=== PATIENT | male | born 2000 | race Caucasian/White ===

== ENCOUNTER 2022-10-08 19:30 | Emergency (ER) | payer SELFPAY ==
--- NOTE | ~2022-10-08 | CT_ITS ---
EXAMINATION: CT abdomen pelvis w con INDICATION: Right upper quadrant pain TECHNIQUE: Computed tomographic images of the abdomen and pelvis were obtained after the administrati on of 100 cc of Omnipaque 350 intravenous contrast. The dose-length product (DLP) was 758.01 mGy-cm. Automated exposure control and iterative reconstruction technique were employed. COMPARISON: None available FINDINGS: The lung bases are clear. The heart size is normal. The liver is diffusely low in attenuati on when compared with the spleen, consistent with hepatic steatosis. The spleen, pancreas, gallbladde r, and adrenal glands are normal. The kidneys are unremarkable. No pathologically enlarged abdominal or pelvic lymph nodes are identified. There is no free intraperitoneal gas or evidence of bowel obstr uction. IMPRESSION: 1. No CT correlate for the patient's symptoms. 2. Diffuse hepatic steatosis. Reviewed, dictated and finalized at location F. ERY PACKER
--- NOTE | ~2022-10-08 | XR_ITS ---
EXAMINATION: XR chest 2V DATE: 10/08/2022 22:11 INDICATION: Hematemesis, concern for pneumomediastinum TECHNIQUE: PA and lateral views of the chest are obtained. COMPARISON: None available FINDINGS: The lungs are free of acute opacities. No pleural effusion or pneumothorax. The cardiomedia stinal silhouette is normal. No pneumomediastinum is identified. The visualized bones and soft tissue s are unremarkable. IMPRESSION: 1. No acute cardiopulmonary abnormality. Reviewed, dictated and finalized at location F. [employer]
[2022-10-08 19:33] VITALS: BP 160/97; PULSE 136; RESP 16; TEMP 37.9; O2SAT 100
[2022-10-08 20:21] LABS: Alanine Aminotransferase 60 U/L (6-50); Albumin Level 4.7 g/dL (3.5-5.1); Alkaline Phosphatase 83 U/L (38-126); Aspartate Amino Transferase 47 U/L (17-59); Bilirubin,Total 1.2 mg/dL (0.2-1.3); Blood Urea Nitrogen 16 mg/dL (9-20); Calcium 8.7 mg/dL (8.4-10.2); Carbon Dioxide 24 mmol/L (22-30); Chloride 100 mmol/L (98-107); Estimated Glomerular Filt Rate 57; Glucose 111 mg/dL (65-110); Lipase 42 U/L (23-300); Potassium 3.8 mmol/L (3.4-5.0)
[2022-10-08 20:21] LABS: Appearance Urine Slightly Cloudy (Clear); Bilirubin Urine 2+ (Negative); Blood Urine Trace-intact (Negative); Color Urine Yellow (Yellow); Glucose Urine UA Negative (Negative); Ketones Urine 2+ mg/dL (Negative); Leukocyte Esterase Ur Trace LEU/UL (Negative); Nitrate Urine Negative (Negative); Protein Urine 2+ mg/dL (Negative); Urobilinogen Urine >=8.0 mg/dL (<2.0)
[2022-10-08 20:26] LABS: Bacteria Urine Trace /hpf; Mucus Urine Rare /lpf; Squamous Epithelial Cell Urine Rare /hpf (Few); WBC Urine 16-20 /hpf
[2022-10-08 20:31] LABS: Add Urine Microscopic? YES
[2022-10-08 20:34] LABS: Anion Gap 15 mmol/L (8-16); Sodium 139 mmol/L (137-145)
--- NOTE | 2022-10-08 21:52 | ED.NAVMDI ---
HPI - Nausea/Vomiting/Diarrhea General Chief complaint: Nausea/Vomiting/Diarrhea Stated complaint: vomiting Time Seen by Provider: 10/08/22 21:20 History of Present Illness HPI Narrative: This is a 22-year-old male who denies past medical history, presenting to the emergency department complaining of abdominal pain, and hematochezia. Patient states for the last 2 to 3 days, he has had upper respiratory congestion and vomiting, today after the 6 times vomiting he noted bright red blood twice. He denies bleeding from any other source. He denies chest pain shortness of breath or loss of consciousness. Related Data Allergies Allergy/AdvReac Type Severity Reaction Status Date / Time No Known Allergies Allergy Verified 10/08/22 19:35 Review of Systems Review of Systems: CONSTITUTIONAL: Denies fever, chills, or sweats. EYES: Denies visual changes, redness, or discharge. ENT: rhinorrhea, congestion, Denies sore throat, or otalgia. CARDIOVASCULAR: Denies chest pain, palpitations, or edema. RESPIRATORY: Denies cough or dyspnea. GASTROINTESTINAL: abdominal pain, nausea, vomiting, Denies diarrhea. GENITOURINARY: Denies dysuria or hematuria. SKIN: Denies rash or itching. MUSCULOSKELETAL: Denies back pain, joint pain, or myalgia. NEUROLOGIC: Denies headache, numbness, dizziness, or weakness. PSYCHIATRIC: Denies anxiety or depression. Exam Narrative: GENERAL: Well-developed, well-nourished, and in no acute distress. HEAD: Normocephalic, atraumatic. EYES: PERRLA and EOMI. ENT: Nares clear, no rhinorrhea or epistaxis. Mucous membranes dry. Oropharynx without tonsillar hypertrophy exudate or other lesions. NECK: Supple. No adenopathy or masses. No carotid bruits or JVD CHEST: Clear to auscultation. No respiratory distress. No wheezes rales or rhonchi HEART: Tachycardic with regular rhythm. No murmur heard. Normal peripheral pulses. ABDOMEN: Soft, mild diffuse tenderness without rebound, nondistended, normal active bowel sounds. EXTREMITIES: Normal range of motion. No edema. SKIN: Warm, dry, no rash. NEURO: No focal deficits. Alert and oriented x3. PSYCH: Normal mood and affect. Course Course Emergency Course: 23:52 - CT not concerning for any acute process. Chest x-ray unremarkable. Patient demonstrates mild DURAN with creatinine 1.5. CBC grossly unremarkable. Patient tested positive for influenza A and was negative for COVID. On reassessment, he states he feels improved and wishes to be discharged. Patient's heart rate remains at 126 with blood pressure 164/85. Will discharge home with recommendation for oral hydration, Tylenol for flu and and wash precautions. Discussed return and emergency precautions including signs/symptoms of acute abdomen and intractable vomiting. The patient voiced understanding and is comfortable to plan. All questions answered to his satisfaction. Vital Signs Vital signs: Vital Signs Temperature 100.2 F H 10/08/22 19:33 Pulse Rate 136 H 10/08/22 19:33 Respiratory Rate 16 10/08/22 19:33 Blood Pressure 160/97 H 10/08/22 19:33 Pulse Oximetry 100 10/08/22 19:33 Oxygen Delivery Room Air 10/08/22 19:33 Temperature 100.2 F H 10/08/22 19:33 Pulse Rate 120 H 10/09/22 00:15 Respiratory Rate 16 10/09/22 00:15 Blood Pressure 157/86 H 10/09/22 00:15 Pulse Oximetry 99 10/09/22 00:15 Oxygen Delivery Room Air 10/08/22 19:33 MDM - Nausea/Vomiting/Diarrhea MDM Narrative Medical decision making narrative: Plan: Labs, imaging, pain control, COVID and flu swab, IV fluids, Differential Diagnosis Differential diagnosis: Likely other (COVID, influenza, Lorie-Acevedo tear, peptic ulcer, metabolic abnormality, other) Lab Data Result diagrams: 10/08/22 21:45 10/08/22 19:46 Labs: Lab Results 10/08/22 10/08/22 10/08/22 Range/Units 19:46 20:01 21:45 WBC 9.4 (4.5-10.0) K/mm3 RBC 5.44 (4.6-6.20) M/mm3 Hgb 16.5 (14.0-18.0) g/dL Hct
[2022-10-08 21:53] LABS: Basophils Percent Auto 0.4 % (0.2-1.2); Eosinophils Absolute Auto 0.1 K/mm3 (0-0.3); Eosinophils Percent Auto 0.5 % (0-4.4); Hematocrit 48.5 % (42.0-52.0); Hemoglobin 16.5 g/dL (14.0-18.0); Immature Granulocyte Absolute 0.05 K/mm3 (0.00-0.031); Immature Granulocyte Percent A 0.5 % (0-0.5); Lymphocytes Absolute Auto 0.85 K/mm3 (0.9-3.2); Lymphocytes Percent Auto 9.1 % (18.3-44.2); Mean Corpuscular Hemoglobin 30.3 pg (26-34); Mean Corpuscular Volume 89.2 fl (80-100); Mean Platelet Volume 9.5 fl (7.4-10.4); Monocytes Absolute Auto 0.9 K/mm3 (0.1-0.6); Monocytes Percent Auto 9.8 % (2.6-8.5); Neutrophils Absolute Auto 7.5 K/mm3 (1.3-6.7); Neutrophils Percent Auto 79.7 % (45.5-73.1); Platelet Count Result 195 k/mm3 (150-375); Red Blood Count 5.44 M/mm3 (4.6-6.20); Red Cell Distribution Width 12.2 % (11.5-14.5); White Blood Count 9.4 K/mm3 (4.5-10.0)
[2022-10-08 22:00] VITALS: BP 170/80; PULSE 140; RESP 18; O2SAT 99
[2022-10-08] MEDS: SODIUM CHLORIDE 0.9% IV 1,000 ML 999 ML IV CONT (22:24)
[2022-10-08] MEDS: BELLADONNA ALK/PHENOB ELIX 10 ML, MAG HYDROX/ALUMINUM HYD/SIMETH 30 ML, LIDOCAINE HCL 2... PO (22:25)
[2022-10-08] MEDS: FAMOTIDINE 20 MG/2 ML VIAL 40 MG IV PUSH (22:26)
[2022-10-08] MEDS: PROCHLORPERAZINE EDISYLATE 10 MG/2 ML VIAL IV PUSH (22:28)
[2022-10-08 23:02] LABS: Influenza A QL RT-PCR Positive (Negative); Influenza B QL RT-PCR Negative (Negative); SARS-CoV-2 RNA PCR Negative
[2022-10-08 23:30] VITALS: BP 164/85; PULSE 126; RESP 20; O2SAT 99
[2022-10-09 00:15] VITALS: BP 157/86; PULSE 120; RESP 16; O2SAT 99
== END 2022-10-09 00:15 | disposition home or self-care (01) ==
PROVIDERS: Emergency Medicine; Emergency Provider Preventive Medicine Aerospace Medicine
DX: J10.1 Influenza due to other identified influenza virus with other respiratory manifestations (principal); K92.0 Hematemesis; R10.9 Unspecified abdominal pain; R79.89 Other specified abnormal findings of blood chemistry; Z20.822 Contact with and (suspected) exposure to COVID-19; K76.0 Fatty (change of) liver, not elsewhere classified
CPT/HCPCS: 36415; 71046; 74177; 80053; 81001; 83690; 85025; 86850; 86900; 86901; 87086; 87636; 96365; 96375; 99284; A9270; J0131; J0780; J7030; Q9967